=== PATIENT | male | born 1940 | race Caucasian/White ===

== ENCOUNTER 2025-08-22 13:51 | Emergency (ER) | payer OTHER ==
[~2025-08-22] VITALS: Ht 182.9 cm; Wt 111.1 kg
[2025-08-22 14:17] VITALS: BP 117/83
== END 2025-08-22 19:10 | disposition home or self-care (01) ==
LOC: ER 13:51
DX: S63.285A Dislocation of proximal interphalangeal joint of left ring finger, initial encounter (principal); W01.0XXA Fall on same level from slipping, tripping and stumbling without subsequent striking against object, initial encounter
CPT/HCPCS: 26725; 73120; 73130; 99283-25